=== PATIENT | female | born 1985 | race African-American/Black ===

== ENCOUNTER 2024-10-06 16:55 | Emergency (ER) | payer BC, SELFPAY ==
[2024-10-06 16:59] VITALS: BP 143/81
[2024-10-06] MEDS: DECADRON 10 MG PO (17:46)
[2024-10-06] MEDS: TORADOL 15 MG IM (17:48)
--- NOTE | 2024-10-06 18:27 | ED.GENMED ---
History of Present Illness
General
Chief Complaint: Throat Problem
Source: patient
Exam Limitations: none
Time Seen by Provider: 10/06/24 17:09
Nursing documentation reviewed up to this point in time: agreed with
History of Present Illness
History of Present Illness:
38-year-old female presenting the emergency department today for concerns of sore throat since yesterday. Has been able to tolerate secretions and food by mouth but does have discomfort. Denies specific fevers lymphadenopathy. She has had some
cough and nasal congestion.
Review of Systems
Review of Systems
Allergies reviewed?: Yes
All Other Systems: ROS reviewed and negative except as documented in HPI and ROS
Phy Exam
Physical Exam
Physical Exam:
GENERAL: Alert , in no apparent distress
EYE: pupils equal and reactive
NECK: Supple, no significant adenopathy.
ENT: Swelling to the posterior pharynx without significant tonsillar swelling, no exudate uvula midline grossly patent airway submandibular lymphadenopathy o/p clr, mmm.
CARDIAC: Regular rate and rhythm .
LUNGS: Clear breath sounds bilaterally, no acute respiratory distress, no wheezes/rales/rhonchi
ABDOMEN: Soft, without focal tenderness, no r/g, no cvat
NEUROLOGICAL: Alert and oriented, no focal neuro deficits
SKIN: Warm and dry, skin intact.
MUSCULOSKELETAL: No edema, well perfused.
PSYCH: Normal and appropriate interaction.
Course
Orders/Labs/Results
Orders:
Orders
10/06/24 17:37
Dexamethasone [Decadron] 10 mg PO NOW STA
Ketorolac [Toradol] 15 mg IM NOW STA
10/06/24 17:46
Rapid Strep Group A Urgent
JESSICA Source: Throat/Pharynx
Specimen Description:
Date Specimen was Collected: 10/06/24
Time Specimen was Collected: 17:43
Vital Signs
Initial and Last Documented VS:
Initial Vital Signs
Temp Pulse Resp BP Pulse Ox
98.7 F 84 16 143/81 98
10/06/24 16:59 10/06/24 16:59 10/06/24 16:59 10/06/24 16:59 10/06/24 16:59
Last Documented Vital Signs
Temp Pulse Resp BP Pulse Ox
98.7 F 84 16 143/81 98
10/06/24 16:59 10/06/24 16:59 10/06/24 16:59 10/06/24 16:59 10/06/24 16:59
MDM/Problems Addressed
MDM/Problems Addressed:
38-year-old female presenting to the emergency department today with concerns of sore throat. Here she has some irritation to the posterior pharynx no exudate no fever. Most consistent with viral pharyngitis. Plan for symptomatic treatment
otherwise stable for discharge. Rapid strep negative. Return precautions given.
*Critical Care Note
Total Time (30-74mins, 75-104mins- exclusive of procedures): Not Applicable
ED Attending Note
-
Portions of this chart may have been created with voice recognition software.� Occasional wrong word or��sound alike� substitutions may have occurred due to the inherent limitations of voice recognition software.
Discharge Plan
Departure
Patient Disposition: Home (Routine Discharge)
Date of Disposition: 10/06/24
Time of Disposition: 18:30
Patient with high blood pressure during this ER visit?: No
Condition: Good
Covid-19: Not Applicable
Discharge Problem:
Pharyngitis
Instructions: Sore Throat, Adult (DC)
Referrals:
NONE,* [Family Provider] -
Activity Restrictions/Additional Instructions:
You came to the emergency department today with concerns of sore throat. This is likely from a virus. Please take Motrin and Tylenol to help with symptoms and stay hydrated. Symptoms should improve over the next few days. Return for any
worsening, new or concerning symptoms.
Interventions
Interventions:
*Risk Screen - Suicide Last Done: 10/06/24 16:59
*Neglect/Abuse Screening Last Done: 10/06/24 16:59
*ED COVID-19 Vaccine History Last Done: 10/06/24 16:59
ED-EENT Assessment Last Done: 10/06/24 17:56
ED- Pulmonary Assessment Last Done: 10/06/24 17:56
Discharge Date and Time
Print Language: ARMENIAN
== END 2024-10-06 18:33 | disposition home or self-care (01) ==
LOC: EMR 16:55
PROVIDERS: EMERGENCY PHYSICIAN Emergency Medicine
DX: J02.9 Acute pharyngitis, unspecified (principal)
CPT/HCPCS: 96372; 99284; 87070; 87880